=== PATIENT | female | born 1980 | race Caucasian/White ===

== ENCOUNTER 2017-07-23 02:19 | Emergency (ER) | payer MEDICAID ==
[2017-07-23 03:11] LABS: URINE BLOOD (Dip) POC 1+ (NEGATIVE); URINE GLUCOSE (Dip) POC Negative (NEGATIVE); URINE KETONES (Dip) POC Negative (NEGATIVE); URINE LEUKOCYTE EST (Dip) POC Negative (NEGATIVE); URINE NITRITE (Dip) POC Negative (NEGATIVE); URINE TOTAL PROTEIN POC Negative (NEGATIVE)
[2017-07-23] MEDS: KETOROLAC 15 MG INJ IV (03:31)
[2017-07-23] MEDS: SOD CHLORIDE 0.9% 1,000 ML IV (03:31)
[2017-07-23] MEDS: NA PHOSPHATE/BIPHOS 133 ML ENEMA PR (03:31)
[2017-07-23] MEDS: BISACODYL 10 MG SUPP PR (04:00)
[2017-07-23] MEDS: ONDANSETRON 4 MG INJ IV (05:21)
[2017-07-23] MEDS: morphine 2 MG INJ IV (05:21)
== END 2017-07-23 06:33 | disposition home or self-care (01) ==
LOC: E/R 02:19
DX: K59.00 Constipation, unspecified (principal); K64.9 Unspecified hemorrhoids
CPT/HCPCS: 81003; 81025; 96374; 96375; 99284-25